=== PATIENT | female | born 2000 | race Caucasian/White ===

== ENCOUNTER 2023-10-06 19:14 | Emergency (ER) | payer OTHER ==
[~2023-10-06] VITALS: Ht 167.6 cm; Wt 70.3 kg
[2023-10-06 19:20] VITALS: BP 114/70; PULSE 121; RESP 20; TEMP 98; O2SAT 98
[2023-10-06 21:17] VITALS: BP 114/70; PULSE 121; RESP 20; TEMP 98; O2SAT 98
== END 2023-10-06 20:45 | disposition left against medical advice (07) ==
LOC: MED 19:14
DX: S60.512A Abrasion of left hand, initial encounter (principal); S80.212A Abrasion, left knee, initial encounter; S80.211A Abrasion, right knee, initial encounter; R51.9 Headache, unspecified; R11.0 Nausea; Z53.21 Procedure and treatment not carried out due to patient leaving prior to being seen by health care provider; Y08.89XA Assault by other specified means, initial encounter; Y93.89 Activity, other specified; Y92.89 Other specified places as the place of occurrence of the external cause; Y99.8 Other external cause status
CPT/HCPCS: 99281